=== PATIENT | female | born 1990 | race Caucasian/White ===

== ENCOUNTER 2017-02-09 17:19 | Emergency (ER) | payer MEDICAID ==
[~2017-02-09] VITALS: Ht 160 cm; Wt 82.6 kg
[2017-02-09] MEDS ORDERED: ALBUTEROL/IPRATROPIUM 2.5MG/0.5MG, 3 ML ONE (18:20)
[2017-02-09] MEDS ORDERED: KETOROLAC 30 MG/1 ML ONE (18:25)
[2017-02-09] MEDS ORDERED: ALBUTEROL/IPRATROPIUM 2.5MG/0.5MG, 3 ML NPPB ONE (18:30)
[2017-02-09] MEDS ORDERED: KETOROLAC 30 MG/1 ML IM ONE (18:30)
[2017-02-09 18:57] VITALS: BP 124/82
[2017-02-09] MEDS ORDERED: ACETAMINOPHEN 325 MG TABLET PO ONE (19:00)
== END 2017-02-09 18:59 | disposition home or self-care (01) ==
LOC: ED 18:13
DX: J20.8 Acute bronchitis due to other specified organisms (principal); J45.998 Other asthma; B34.9 Viral infection, unspecified; Z77.22 Contact with and (suspected) exposure to environmental tobacco smoke (acute) (chronic)
CPT/HCPCS: 93005; 94640; 96372; 99283; J1885; J7620

== ENCOUNTER 2017-04-19 01:45 | Emergency (ER) | payer MEDICAID ==
[~2017-04-19] VITALS: Ht 165.1 cm; Wt 79.7 kg
[2017-04-19] MEDS ORDERED: MORPHINE SULFATE 4 MG/ML, 1ML ONE (02:29)
[2017-04-19] MEDS ORDERED: ONDANSETRON 2MG/ML, 2ML ONE (02:29)
[2017-04-19] MEDS ORDERED: ONDANSETRON 2MG/ML, 2ML IVPush ONE (02:30)
[2017-04-19] MEDS ORDERED: SODIUM CHLORIDE FLUSH 10ML SYR IVF ONE (02:30)
[2017-04-19] MEDS ORDERED: SODIUM CHLORIDE 0.9% 1,000ML IVBOLUS ONE (02:30)
[2017-04-19] MEDS: MORPHINE SULFATE 4 MG/ML, 1ML IVPush PRN ×2 (02:31→03:03)
[2017-04-19 02:49] LABS: BLOOD UREA NITROGEN 12 mg/dL (7-18)
[2017-04-19 02:55] LABS: ASPARTATE AMINO TRANSFERASE 20 U/L (15-37)
[2017-04-19 04:05] VITALS: BP 115/78
[2017-04-19] MEDS ORDERED: OMNIPAQUE 350 MG/ML, 100ML BOTTLE ONE (04:52)
== END 2017-04-19 05:55 | disposition home or self-care (01) ==
LOC: ED 03:02
DX: R10.31 Right lower quadrant pain (principal); R11.2 Nausea with vomiting, unspecified
CPT/HCPCS: 36415; 74177; 76830; 80053; 81003; 83690; 84703; 85025; 96361; 96374; 96375; 96376; 99285; J2405; J7030; Q9967

== ENCOUNTER 2017-09-08 20:11 | Emergency (ER) | payer MEDICAID ==
[~2017-09-08] VITALS: Ht 175.3 cm; Wt 84.0 kg
[2017-09-08 20:14] VITALS: BP 153/103
[2017-09-08] MEDS ORDERED: IBUPROFEN 200 MG TABLET ONE (20:49)
[2017-09-08] MEDS ORDERED: IBUPROFEN 800 MG TABLET PO ONE (21:00)
== END 2017-09-08 22:04 | disposition home or self-care (01) ==
LOC: ED 21:30
DX: S83.92XA Sprain of unspecified site of left knee, initial encounter (principal); W18.49XA Other slipping, tripping and stumbling without falling, initial encounter; Y93.89 Activity, other specified; Y92.488 Other paved roadways as the place of occurrence of the external cause; Y99.8 Other external cause status
CPT/HCPCS: 29505

== ENCOUNTER 2017-11-09 04:10 | Emergency (ER) | payer MEDICAID ==
[~2017-11-09] VITALS: Ht 165.1 cm; Wt 88.2 kg
[2017-11-09 05:44] LABS: RAPID INFLUENZA A Negative (Negative); RAPID INFLUENZA B Negative (Negative)
[2017-11-09 06:42] VITALS: BP 113/59
== END 2017-11-09 06:44 | disposition home or self-care (01) ==
LOC: ED 05:24
DX: J02.9 Acute pharyngitis, unspecified (principal); J06.9 Acute upper respiratory infection, unspecified; J45.909 Unspecified asthma, uncomplicated
CPT/HCPCS: 71046; 87081; 87400; 87880; 93005; 99285

== ENCOUNTER 2018-03-05 01:34 | Emergency (ER) | payer SELFPAY ==
[~2018-03-05] VITALS: Ht 154.9 cm; Wt 83.3 kg
[2018-03-05 01:36] VITALS: BP 147/108
== END 2018-03-05 02:04 | disposition home or self-care (01) ==
LOC: ED 01:58
DX: H92.02 Otalgia, left ear (principal); H72.02 Central perforation of tympanic membrane, left ear
CPT/HCPCS: 99281

== ENCOUNTER 2018-03-05 16:00 | Emergency (ER) | payer SELFPAY ==
[~2018-03-05] VITALS: Ht 165.1 cm; Wt 82.3 kg
[2018-03-05] MEDS ORDERED: SODIUM CHLORIDE FLUSH 10ML SYR IVF ONE (16:30)
[2018-03-05 17:49] LABS: HCG UR SG 1.011 (1.003-1.030)
[2018-03-05] MEDS ORDERED: OMNIPAQUE 350 MG/ML, 100ML BOTTLE ONE (17:52)
[2018-03-05 18:16] VITALS: BP 107/53
== END 2018-03-05 20:13 | disposition home or self-care (01) ==
LOC: ED 20:07
DX: S00.03XA Contusion of scalp, initial encounter (principal); Y04.8XXA Assault by other bodily force, initial encounter; Y93.89 Activity, other specified; Y92.89 Other specified places as the place of occurrence of the external cause; Y99.8 Other external cause status
CPT/HCPCS: 70450; 70491; 81025; 93005; 99285; Q9967

== ENCOUNTER 2018-06-07 22:46 | Emergency (ER) | payer SELFPAY | END 2018-06-07 23:46 | disposition left against medical advice (07) | LOC: ED 23:40 | DX: M54.5 Low back pain (principal); R42 Dizziness and giddiness; Z53.21 Procedure and treatment not carried out due to patient leaving prior to being seen by health care provider ==

== ENCOUNTER 2018-07-17 01:58 | Emergency (ER) | payer SELFPAY ==
[~2018-07-17] VITALS: Ht 165.1 cm; Wt 82.7 kg
[2018-07-17] MEDS ORDERED: SODIUM CHLORIDE 0.9% 1,000ML IVBOLUS ONE (02:30)
[2018-07-17] MEDS ORDERED: SODIUM CHLORIDE FLUSH 10ML SYR IVF ONE (02:30)
[2018-07-17 02:43] LABS: ALANINE AMINOTRANSFERASE 60 U/L (12-78); ALBUMIN 3.4 g/dL (3.4-5.0); ANION GAP 6 mmol/L (5-15); CALCIUM 8.4 mg/dL (8.5-10.1); CHLORIDE 107 mmol/L (98-107); CREATININE 0.78 mg/dL (0.55-1.02)
[2018-07-17 02:44] VITALS: BP 158/76
[2018-07-17 02:47] LABS: ALKALINE PHOSPHATASE 140 U/L (45-117); BASOPHILS # (AUTO) 0.09 x10^3/uL (0-0.1); BASOPHILS % (AUTO) 1 % (0-1); BILIRUBIN,TOTAL 0.5 mg/dL (0.2-1.0); EOSINOPHILS # (AUTO) 0.08 x10^3/uL (0-0.4); EOSINOPHILS % (AUTO) 1 % (1-7); LYMPHOCYTES # (AUTO) 1.47 x10^3/uL (1-3.4); LYMPHOCYTES % (AUTO) 17 % (22-44); MD NO; MEAN CORPUSCULAR HEMOGLOBIN 27.7 pg (27.0-34.8); MEAN CORPUSCULAR HGB CONC 32.7 g/dL (32.4-35.8); MEAN CORPUSCULAR VOLUME 84.8 fL (80-100); MEAN PLATELET VOLUME 7.7 fL (7.4-10.4); MONOCYTES % (AUTO) 10 % (2-9); NEUTROPHILS # (AUTO) 6.32 x10^3/uL (1.8-6.8); NEUTROPHILS % (AUTO) 71 % (42-75); PLATELET COUNT 394 x10^3/uL (130-400); RED BLOOD COUNT 4.12 x10^6/uL (3.82-5.3); RED CELL DISTRIBUTION WIDTH 14.9 % (9.6-15.2); TOTAL PROTEIN 7.7 g/dL (6.4-8.2); TROPONIN I < 0.015 ng/mL (0.000-0.045)
[2018-07-17] MEDS ORDERED: OMNIPAQUE 350 MG/ML, 100ML BOTTLE ONE (03:08)
== END 2018-07-17 03:50 | disposition home or self-care (01) ==
LOC: ED 03:22
DX: R07.89 Other chest pain (principal); R06.00 Dyspnea, unspecified; J45.909 Unspecified asthma, uncomplicated
CPT/HCPCS: 36415; 71275; 80053; 84484; 85025; 93005; 96360; 99285; J7030; Q9967

== ENCOUNTER 2018-12-19 05:52 | Emergency (ER) | payer SELFPAY ==
[~2018-12-19] VITALS: Ht 165.1 cm; Wt 88.6 kg
[2018-12-19 06:01] VITALS: BP 128/87
--- NOTE | 2018-12-19 06:22 | NUR ---
PT. REPORTS COUGH X 5 DAYS; UPPER LEFT CP TODAY RADIATES THROUGH BACK. DENIES ANY CARDIAC HX. DENIES DAILY MEDS. ERP HAS BEEN IN FOR EVAL. LAB AT BS NOW.
--- NOTE | 2018-12-19 06:24 | NUR ---
EKG DONE IN TRIAGE AND [facility].
[2018-12-19] MEDS ORDERED: IBUPROFEN 600 MG TABLET PO ONE (06:30)
[2018-12-19] MEDS ORDERED: IBUPROFEN 600 MG TABLET ONE (06:30)
[2018-12-19] MEDS ORDERED: GUAIFENESIN/COD200MG-20MG/10ML LIQUID PO ONE (06:30)
[2018-12-19 06:38] LABS: BASOPHILS # (AUTO) 0.06 x10^3/uL (0-0.1); BASOPHILS % (AUTO) 1 % (0-1); EOSINOPHILS # (AUTO) 0.13 x10^3/uL (0-0.4); EOSINOPHILS % (AUTO) 1 % (1-7); LYMPHOCYTES # (AUTO) 2.52 x10^3/uL (1-3.4); LYMPHOCYTES % (AUTO) 24 % (22-44); MD NO; MEAN CORPUSCULAR HEMOGLOBIN 26.3 pg (27.0-34.8); MEAN CORPUSCULAR HGB CONC 32.7 g/dL (32.4-35.8); MEAN CORPUSCULAR VOLUME 80.3 fL (80-100); MEAN PLATELET VOLUME 8.1 fL (7.4-10.4); MONOCYTES # (AUTO) 0.52 x10^3/uL (0.2-0.8); MONOCYTES % (AUTO) 5 % (2-9); NEUTROPHILS # (AUTO) 7.09 x10^3/uL (1.8-6.8); NEUTROPHILS % (AUTO) 69 % (42-75); PLATELET COUNT 381 x10^3/uL (130-400); RED BLOOD COUNT 4.69 x10^6/uL (3.82-5.3); RED CELL DISTRIBUTION WIDTH 16.3 % (9.6-15.2)
[2018-12-19 06:52] LABS: ANION GAP 8 mmol/L (5-15); CALCIUM 8.6 mg/dL (8.5-10.1); CHLORIDE 107 mmol/L (98-107); CREATININE 0.86 mg/dL (0.55-1.02)
--- NOTE | 2018-12-19 06:57 | NUR ---
REPORT TO NATALYA NICOLE.
== END 2018-12-19 08:29 | disposition home or self-care (01) ==
LOC: ED 06:42
DX: J20.9 Acute bronchitis, unspecified (principal); F17.210 Nicotine dependence, cigarettes, uncomplicated
CPT/HCPCS: 36415; 71046; 80048; 85025; 85379; 93005; 99284

== ENCOUNTER 2019-05-09 22:35 | Emergency (ER) | payer SELFPAY ==
[~2019-05-09] VITALS: Ht 165.1 cm; Wt 82.0 kg
[2019-05-09 22:38] VITALS: BP 150/90
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
--- NOTE | 2019-05-09 23:10 | NUR ---
PT BACK TO ROOM FROM XRAY.
--- NOTE | 2019-05-10 00:03 | NUR ---
PT GIVEN DC INSTRUCTIONS AND SCRIPT. PT EDUCATED REGARDING DC MEDICATION. PT'S AOX4. RESPS EVEN AND UNLABORED. NO ACUTE DISTRESS AT DC.
== END 2019-05-10 00:04 | disposition home or self-care (01) ==
LOC: ED 23:49
DX: S80.02XA Contusion of left knee, initial encounter (principal); S90.02XA Contusion of left ankle, initial encounter; S90.32XA Contusion of left foot, initial encounter; F17.200 Nicotine dependence, unspecified, uncomplicated; W18.30XA Fall on same level, unspecified, initial encounter; Y93.89 Activity, other specified; Y92.830 Public park as the place of occurrence of the external cause; Y99.8 Other external cause status
CPT/HCPCS: 99283

== ENCOUNTER 2020-01-06 21:47 | Emergency (ER) | payer SELFPAY ==
[~2020-01-06] VITALS: Ht 165.1 cm; Wt 80.0 kg
[2020-01-06] MEDS ORDERED: MORPHINE SULFATE 4 MG/ML, 1ML IVPush PRN (22:30)
[2020-01-06] MEDS ORDERED: SODIUM CHLORIDE FLUSH 10ML SYR IVF ONE (22:30)
[2020-01-06 22:57] LABS: BASOPHILS % (AUTO) 1 % (0-1); EOSINOPHILS # (AUTO) 0.11 x10^3/uL (0-0.4); EOSINOPHILS % (AUTO) 1 % (1-7); LYMPHOCYTES # (AUTO) 2.86 x10^3/uL (1-3.4); LYMPHOCYTES % (AUTO) 26 % (22-44); MD NO; MEAN CORPUSCULAR HEMOGLOBIN 29.9 pg (27.0-34.8); MEAN CORPUSCULAR HGB CONC 33.3 g/dL (32.4-35.8); MEAN CORPUSCULAR VOLUME 89.7 fL (80-100); MONOCYTES # (AUTO) 0.79 x10^3/uL (0.2-0.8); MONOCYTES % (AUTO) 7 % (2-9); NEUTROPHILS # (AUTO) 7.03 x10^3/uL (1.8-6.8); NEUTROPHILS % (AUTO) 65 % (42-75); PLATELET COUNT 361 x10^3/uL (130-400); RED BLOOD COUNT 4.89 x10^6/uL (3.82-5.3); RED CELL DISTRIBUTION WIDTH 13.9 % (9.6-15.2)
--- NOTE | 2020-01-06 22:59 | NUR ---
PT HERE FOR RLQ PAIN AND N/V. 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 VSS. PT AT CT. WILL MEDICATE PT AGAIN WHEN SHE RETURNS.
[2020-01-06 23:09] LABS: ALBUMIN 3.6 g/dL (3.4-5.0); ANION GAP 7 mmol/L (5-15); CALCIUM 9.2 mg/dL (8.5-10.1); CHLORIDE 107 mmol/L (98-107)
[2020-01-06] MEDS ORDERED: MORPHINE SULFATE 4 MG/ML, 1ML ONE (23:15)
[2020-01-06 23:16] LABS: ALANINE AMINOTRANSFERASE 62 U/L (12-78); ALKALINE PHOSPHATASE 99 U/L (45-117); BILIRUBIN,TOTAL 0.3 mg/dL (0.2-1.0); TOTAL PROTEIN 7.3 g/dL (6.4-8.2)
--- NOTE | 2020-01-06 23:23 | NUR ---
PT MEDICATD FOR PAIN. PT UP TO BATHROOM FOR UA SAMPLE
[2020-01-06] MEDS ORDERED: ONDANSETRON 2MG/ML, 2ML ONE (23:34)
[2020-01-06 23:44] LABS: CULTURE INDICATED? YES; MICROSCOPIC INDICATED
[2020-01-07] MEDS ORDERED: ONDANSETRON 2MG/ML, 2ML IVPush ONE
[2020-01-07] MEDS ORDERED: NITROFURANTOIN (MACROBID) 100 MG CAPSULE ONE (00:42)
--- NOTE | 2020-01-07 00:52 | NUR ---
WILD RN: PT MEDICATED PER DEC. PT TO BE D/C HOME.
[2020-01-07] MEDS ORDERED: NITROFURANTOIN (MACROBID) 100 MG CAPSULE PO ONE (01:00)
[2020-01-07 01:11] VITALS: BP 131/86
== END 2020-01-07 01:13 | disposition home or self-care (01) ==
LOC: ED 01-07
DX: N83.201 Unspecified ovarian cyst, right side (principal); N30.00 Acute cystitis without hematuria; R11.0 Nausea; R10.31 Right lower quadrant pain; J45.909 Unspecified asthma, uncomplicated
CPT/HCPCS: 36415; 76830; 76856; 80053; 81001; 84703; 85025; 87077; 87086; 87186; 96374; 96375; 99285; J2270; J2405

== ENCOUNTER 2020-01-10 00:07 | Emergency (ER) | payer SELFPAY ==
[~2020-01-10] VITALS: Ht 165.1 cm; Wt 88.0 kg
[2020-01-10 00:13] VITALS: BP 138/94
[2020-01-10 00:32] LABS: BASOPHILS # (AUTO) 0.07 x10^3/uL (0-0.1); BASOPHILS % (AUTO) 1 % (0-1); EOSINOPHILS # (AUTO) 0.11 x10^3/uL (0-0.4); EOSINOPHILS % (AUTO) 1 % (1-7); LYMPHOCYTES # (AUTO) 3.41 x10^3/uL (1-3.4); LYMPHOCYTES % (AUTO) 31 % (22-44); MD NO; MEAN CORPUSCULAR HEMOGLOBIN 30.2 pg (27.0-34.8); MEAN CORPUSCULAR HGB CONC 33.8 g/dL (32.4-35.8); MEAN CORPUSCULAR VOLUME 89.2 fL (80-100); MEAN PLATELET VOLUME 8.2 fL (7.4-10.4); MONOCYTES # (AUTO) 0.77 x10^3/uL (0.2-0.8); MONOCYTES % (AUTO) 7 % (2-9); NEUTROPHILS % (AUTO) 60 % (42-75); PLATELET COUNT 369 x10^3/uL (130-400); RED BLOOD COUNT 4.71 x10^6/uL (3.82-5.3); RED CELL DISTRIBUTION WIDTH 13.8 % (9.6-15.2)
[2020-01-10 00:45] LABS: ALANINE AMINOTRANSFERASE 64 U/L (12-78); ALBUMIN 3.6 g/dL (3.4-5.0); ANION GAP 7 mmol/L (5-15); CALCIUM 8.5 mg/dL (8.5-10.1); CHLORIDE 108 mmol/L (98-107); CREATININE 0.82 mg/dL (0.55-1.02)
[2020-01-10 00:48] LABS: ALKALINE PHOSPHATASE 102 U/L (45-117); BILIRUBIN,TOTAL 0.3 mg/dL (0.2-1.0); TOTAL PROTEIN 7.3 g/dL (6.4-8.2)
--- NOTE | 2020-01-10 01:37 | NUR ---
called for room, registration notes that pt left to go to [facility]
[2020-01-10 01:41] LABS: CULTURE INDICATED? YES; MICROSCOPIC INDICATED
== END 2020-01-10 01:42 | disposition left against medical advice (07) ==
LOC: ED 01:36
DX: R10.31 Right lower quadrant pain (principal); R11.0 Nausea
CPT/HCPCS: 36415; 80053; 81001; 83690; 85025; 87077; 87086; 99283

== ENCOUNTER 2020-05-15 23:09 | Emergency (ER) | payer SELFPAY ==
[~2020-05-15] VITALS: Ht 165.1 cm; Wt 86.3 kg
[2020-05-15 23:11] VITALS: BP 134/88
[2020-05-16 00:20] LABS: BASOPHILS # (AUTO) 0.04 x10^3/uL (0-0.1); BASOPHILS % (AUTO) 0 % (0-1); EOSINOPHILS # (AUTO) 0.06 x10^3/uL (0-0.4); EOSINOPHILS % (AUTO) 1 % (1-7); LYMPHOCYTES # (AUTO) 2.55 x10^3/uL (1-3.4); LYMPHOCYTES % (AUTO) 20 % (22-44); MD NO; MEAN CORPUSCULAR HEMOGLOBIN 29.7 pg (27.0-34.8); MEAN CORPUSCULAR HGB CONC 32.4 g/dL (32.4-35.8); MEAN CORPUSCULAR VOLUME 91.7 fL (80-100); MEAN PLATELET VOLUME 8.1 fL (7.4-10.4); MONOCYTES % (AUTO) 3 % (2-9); NEUTROPHILS % (AUTO) 77 % (42-75); PLATELET COUNT 354 x10^3/uL (130-400); RED BLOOD COUNT 4.83 x10^6/uL (3.82-5.3); RED CELL DISTRIBUTION WIDTH 13.2 % (9.6-15.2)
[2020-05-16 00:29] LABS: ANION GAP 5 mmol/L (5-15); CALCIUM 8.8 mg/dL (8.5-10.1); CHLORIDE 108 mmol/L (98-107); CREATININE 0.83 mg/dL (0.55-1.02)
== END 2020-05-16 01:08 ==
LOC: ED 23:30
DX: R20.2 Paresthesia of skin (principal); F17.210 Nicotine dependence, cigarettes, uncomplicated; R00.0 Tachycardia, unspecified; J45.909 Unspecified asthma, uncomplicated
CPT/HCPCS: 36415; 80048; 84443; 84703; 85025; 99283; 99406

== ENCOUNTER 2020-07-06 14:25 | Emergency (ER) | payer OTHER ==
[~2020-07-06] VITALS: Ht 165.1 cm; Wt 83.5 kg
--- NOTE | 2020-07-06 14:45 | NUR ---
pt presents to ED with c/o burning sternal chest pain radiating to back, onset [place]. pt states lying flat makes pain worse, sitting up improves. pt notes "I can't catch my breath" , however resps are even and unlabored, pt able to speak in full sentences without taking a breath. pt is texting on phone at this time. EKG taken in triage, pt placed on all monitors. pt is sinus tach rate 100 with no ectopy. pt seen and examined by GREG Ontiveros, awaiting orders at this time. call light in reach.
[2020-07-06] MEDS ORDERED: SODIUM CHLORIDE FLUSH 10ML SYR IVF ONE (15:00)
[2020-07-06] MEDS ORDERED: MORPHINE SULFATE 4 MG/ML, 1ML IVPush PRN (15:00)
[2020-07-06] MEDS ORDERED: MORPHINE SULFATE 4 MG/ML, 1ML ONE (15:01)
[2020-07-06 15:07] LABS: BASOPHILS # (AUTO) 0.02 x10^3/uL (0-0.1); BASOPHILS % (AUTO) 0 % (0-1); EOSINOPHILS # (AUTO) 0.14 x10^3/uL (0-0.4); EOSINOPHILS % (AUTO) 1 % (1-7); LYMPHOCYTES # (AUTO) 1.86 x10^3/uL (1-3.4); LYMPHOCYTES % (AUTO) 13 % (22-44); MD NO; MEAN CORPUSCULAR HEMOGLOBIN 29.7 pg (27.0-34.8); MEAN CORPUSCULAR HGB CONC 32.7 g/dL (32.4-35.8); MEAN CORPUSCULAR VOLUME 90.7 fL (80-100); MONOCYTES # (AUTO) 1.09 x10^3/uL (0.2-0.8); MONOCYTES % (AUTO) 8 % (2-9); NEUTROPHILS # (AUTO) 11.36 x10^3/uL (1.8-6.8); NEUTROPHILS % (AUTO) 79 % (42-75); PLATELET COUNT 382 x10^3/uL (130-400); RED BLOOD COUNT 5.07 x10^6/uL (3.82-5.3); RED CELL DISTRIBUTION WIDTH 13.4 % (9.6-15.2)
[2020-07-06 15:12] VITALS: BP 117/64
--- NOTE | 2020-07-06 15:13 | NUR ---
report given to NATALYA Mora who is assuming care.
--- NOTE | 2020-07-06 15:13 | NUR ---
piv placed, pt medicated per emar, tolerated well.
[2020-07-06 15:20] LABS: ALANINE AMINOTRANSFERASE 51 U/L (12-78); ANION GAP 7 mmol/L (5-15); CALCIUM 9.3 mg/dL (8.5-10.1); CHLORIDE 111 mmol/L (98-107)
[2020-07-06 15:25] LABS: ALKALINE PHOSPHATASE 101 U/L (45-117); BILIRUBIN,TOTAL 1.5 mg/dL (0.2-1.0); TOTAL PROTEIN 7.6 g/dL (6.4-8.2); TROPONIN I < 0.015 ng/mL (0.000-0.045)
== END 2020-07-06 16:39 | disposition home or self-care (01) ==
LOC: ED 16:25
DX: R07.2 Precordial pain (principal); R06.02 Shortness of breath; R00.0 Tachycardia, unspecified; I10 Essential (primary) hypertension; J45.909 Unspecified asthma, uncomplicated
CPT/HCPCS: 36415; 71045; 80053; 83690; 84484; 85025; 85379; 93005; 96374; 99285; J2270

== ENCOUNTER 2021-06-17 06:48 | Emergency (ER) | payer MEDICAID ==
[~2021-06-17] VITALS: Ht 165.1 cm; Wt 97.8 kg
--- NOTE | 2021-06-17 07:14 | NUR ---
PT PLACED ON ALL ROOM MONITORING. PT REPORTS SX OF COUGH, SWEATS, BODY ACHES, SORE THROAT SINCE YESTERDAY. PT HAD J&J VACCINE ONE MONTH AGO, REPORTS BEING RELEASED FROM [facility] LAST WEEK. RESP [facility] AT [facility]. COVID SWAB COMPLETED BY ERP. CALL LIGHT WITHIN REACH.
[2021-06-17 07:36] LABS: BASOPHILS % (AUTO) 1 % (0-1); EOSINOPHILS % (AUTO) 2 % (1-7); LYMPHOCYTES % (AUTO) 20 % (22-44); MEAN CORPUSCULAR HEMOGLOBIN 30.8 pg (27.0-34.8); MEAN CORPUSCULAR HGB CONC 33.9 g/dL (32.4-35.8); MEAN PLATELET VOLUME 7.6 fL (7.4-10.4); MONOCYTES % (AUTO) 8 % (2-9); NEUTROPHILS % (AUTO) 69 % (42-75); PLATELET COUNT 347 x10^3/uL (130-400); RED BLOOD COUNT 4.48 x10^6/uL (3.82-5.3); RED CELL DISTRIBUTION WIDTH 13.1 % (9.6-15.2)
[2021-06-17 07:46] LABS: ALBUMIN 3.8 g/dL (3.4-5.0); ANION GAP 8 mmol/L (5-15); CALCIUM 8.8 mg/dL (8.5-10.1); CHLORIDE 106 mmol/L (98-107)
[2021-06-17 07:52] LABS: ALANINE AMINOTRANSFERASE 67 U/L (12-78); ALKALINE PHOSPHATASE 103 U/L (45-117); CREATININE 0.69 mg/dL (0.55-1.02); TOTAL PROTEIN 7.7 g/dL (6.4-8.2); TROPONIN I < 0.015 ng/mL (0.000-0.045)
[2021-06-17 08:13] VITALS: BP 120/63
== END 2021-06-17 08:37 | disposition home or self-care (01) ==
LOC: ED 08:31
DX: B34.9 Viral infection, unspecified (principal); Z20.822 Contact with and (suspected) exposure to COVID-19
CPT/HCPCS: 36415; 71045; 80053; 84484; 85025; 93005; 99285; U0003; U0005